=== PATIENT | female | born 1935 | race Caucasian/White ===

== ENCOUNTER 2017-03-22 13:32 | Emergency (ER) | payer OTHER ==
[~2017-03-22] VITALS: Ht 149.9 cm; Wt 63.5 kg
[~2017-03-22 13:32] MED LIST: ALEVE220 M1 PO; CEFADROXIL500 MG PO; PERCOCET 5/321 UDTAB PO
[2017-03-22] MEDS ORDERED: CENTANY30 GM TOP (16:29)
[2017-03-22] MEDS ORDERED: MUPIROCIN15 GM TOP (16:32)
== END 2017-03-22 16:38 | disposition home or self-care (01) ==
LOC: ER 13:32
DX: M79.661 Pain in right lower leg (principal); S81.801S Unspecified open wound, right lower leg, sequela; X58.XXXS Exposure to other specified factors, sequela

== ENCOUNTER 2019-02-20 10:36 | Outpatient (CLI) | payer OTHER ==
[~2019-02-20 10:36] MED LIST changes: +CENTANY30 GM TOP; +MUPIROCIN15 GM TOP
== END 2019-02-20 10:39 | disposition home or self-care (01) ==
LOC: MRI 10:36 → NUCLEAR 10:36 → MRI 10:39
DX: I11.9 Hypertensive heart disease without heart failure (principal)

== ENCOUNTER 2019-02-26 14:24 | Outpatient (CLI) | payer OTHER | END 2019-02-26 14:33 | disposition home or self-care (01) | LOC: TOM 14:24 | DX: J38.01 Paralysis of vocal cords and larynx, unilateral (principal); F02.80 Dementia in other diseases classified elsewhere, unspecified severity, without behavioral disturbance, psychotic disturbance, mood disturbance, and anxiety | CPT/HCPCS: 70551 ==

== ENCOUNTER 2019-03-14 02:26 | Emergency (ER) | payer OTHER ==
[~2019-03-14] VITALS: Ht 152.4 cm; Wt 68.0 kg
[2019-03-14] MEDS ORDERED: GALANTAMINE HBR24 MG PO (02:42)
[2019-03-14] MEDS ORDERED: ZOLOFT25 MG PO (02:42)
[2019-03-14] MEDS ORDERED: DIPROLENE 0.05%15 GM TOP (04:48)
[2019-03-14] MEDS ORDERED: VISTARIL50 MG PO (04:48)
== END 2019-03-14 05:10 ==
LOC: ER 02:26
DX: G30.1 Alzheimer's disease with late onset (principal); F02.80 Dementia in other diseases classified elsewhere, unspecified severity, without behavioral disturbance, psychotic disturbance, mood disturbance, and anxiety; F06.4 Anxiety disorder due to known physiological condition